=== PATIENT | male | born 1985 | race Caucasian/White ===

== ENCOUNTER 2021-05-09 13:18 | Emergency (ER) | payer OTHER ==
[~2021-05-09] VITALS: Ht 167.6 cm; Wt 70.3 kg
[2021-05-09 13:58] VITALS: BP 133/81
--- NOTE | 2021-05-09 14:00 | NUR ---
SHERIE.HANDED ON URINE CUP.
[2021-05-09] MEDS ORDERED: NACL 0.9% 1,000 ML IV ONE (15:10)
[2021-05-09] MEDS ORDERED: KETOROLAC 30 MG/ML VIAL IM ONE (15:10)
[2021-05-09 15:33] LABS: BASOPHILS % (AUTO) 0.3 % (0.0-2.0); EOSINOPHILS # (AUTO) 0.1 K/uL (0-0.4); EOSINOPHILS % (AUTO) 1.9 % (0.0-4.0); HEMOGLOBIN 16.3 g/dL (12.0-18.0); LYMPHOCYTES # (AUTO) 1.1 K/uL (2.0-11.5); LYMPHOCYTES % (AUTO) 20.2 % (20.5-51.1); MEAN CORPUSCULAR HEMOGLOBIN 31 pg (27-31); MEAN CORPUSCULAR HGB CONC 33 g/dL (33-37); MEAN CORPUSCULAR VOLUME 92.5 fL (80-94); MONOCYTES # (AUTO) 0.5 K/uL (0.8-1.0); MONOCYTES % (AUTO) 9.6 % (1.7-9.3); NEUTROPHILS # (AUTO) 3.7 K/uL (1.8-7.7); PLATELET COUNT (AUTO) 296 K/uL (140-450); RED BLOOD CELL COUNT(AUTO) 5.29 MIL/uL (4.20-6.10); RED CELL DISTRIBUTION WIDTH 13.7 % (11.6-13.7); WHITE BLOOD COUNT (AUTO) 5.4 K/uL (4.8-10.8)
[2021-05-09 15:48] LABS: ANION GAP 11.5 (8-16); CARBON DIOXIDE 30.1 mmol/L (21-32); POTASSIUM 4.6 mmol/L (3.5-5.1)
[2021-05-09] MEDS ORDERED: HYDROcodone/APAP 5/325 MG 1 TAB TAB PO ONE (17:00)
[2021-05-09] MEDS ORDERED: ACET-8386 PO (17:37)
[2021-05-09] MEDS ORDERED: IBUP-1842 PO (17:38)
[2021-05-09] MEDS ORDERED: KETOROLAC 30 MG/ML VIAL ONE (18:01)
--- NOTE | 2021-05-09 18:13 | NUR ---
pt given crutches and insturcted how to use it. pt stated he has used crutches before. pt refused to demonstrate use and agreed he fully understands how to use crutches. ERMD notified.
--- NOTE | 2021-05-09 18:15 | NUR ---
35 Y/O MALE C/O L FLANK PAIN X4 DAYS. PT ALSO C/O PAINFUL URINATION, DENIES HEMATURIA. PT DESCRIBES PAIN "UNCOMFORTABLE". PT DENIES TAKING ANYTHING FOR PAIN. DENIES FEVER/CHILLS. PT STATED HE HASNT EATEN SINCE THIS MORNING, PROVIDED FOOD. PT A/O X4 WITH EVEN AND UNLABORED RESPIRATIONS PMH:DENIES NKDA
[2021-05-10] MEDS ORDERED: TAMSULOSIN 0.4 MG CAP PO SCH (08:30)
== END 2021-05-09 18:28 | disposition home or self-care (01) ==
LOC: MED 13:18 → MERGE 13:18 → MED 18:28
DX: R10.9 Unspecified abdominal pain (principal); R30.0 Dysuria; M54.9 Dorsalgia, unspecified
CPT/HCPCS: 36415; 74176; 80048; 81002; 85025; 96372; 99284; J1885

== ENCOUNTER 2021-08-15 00:05 | Emergency (ER) | payer OTHER ==
[~2021-08-15] VITALS: Ht 167.6 cm; Wt 68.0 kg
[~2021-08-15 00:05] MED LIST: ACET-8386 PO; IBUP-1842 PO
[2021-08-15 00:19] VITALS: BP 126/83
--- NOTE | 2021-08-15 00:26 | NUR ---
PT AMBULATORY TO BED 05 W STEADY GAIT.
--- NOTE | 2021-08-15 00:29 | NUR ---
Dr. Quintanilla examining patient.
--- NOTE | 2021-08-15 00:30 | NUR ---
PT ASSESSMENT COMPLETED BY TORITO. NO NURSING INTERVENTIONS REQUIRED AT THIS TIME.
[2021-08-15] MEDS ORDERED: ACYC400T14 PO (00:32)
--- NOTE | 2021-08-15 00:32 | NUR ---
PT PROVIDED W JUICE AND SANDWHICH.
[2021-08-15 00:36] VITALS: BP 126/83
--- NOTE | 2021-08-15 00:36 | NUR ---
Patient discharged BY TORITO HARP. Rx of ACYCLOVIR given BY TORITO.
== END 2021-08-15 00:36 | disposition home or self-care (01) ==
LOC: MED 00:05
DX: B00.9 Herpesviral infection, unspecified (principal); Z79.899 Other long term (current) drug therapy; Z79.1 Long term (current) use of non-steroidal anti-inflammatories (NSAID); Z79.891 Long term (current) use of opiate analgesic
CPT/HCPCS: 99283

== ENCOUNTER 2021-11-21 18:38 | Emergency (ER) | payer OTHER ==
[~2021-11-21] VITALS: Ht 167.6 cm; Wt 68.0 kg
[~2021-11-21 18:38] MED LIST changes: +ACYC400T14 PO
--- NOTE | 2021-11-21 22:05 | NUR ---
PATIENT LEFT WITHOUT BEING SEEN BY DR. Hernandez. NO FURTHER CARE PROVIDED FOR PATIENT.
== END 2021-11-21 22:05 | disposition left against medical advice (07) ==
LOC: MED 18:38
DX: R21 Rash and other nonspecific skin eruption (principal); Z53.21 Procedure and treatment not carried out due to patient leaving prior to being seen by health care provider

== ENCOUNTER 2021-11-23 09:04 | Emergency (ER) | payer OTHER ==
[~2021-11-23] VITALS: Ht 167.6 cm; Wt 67.1 kg
[2021-11-23 09:29] VITALS: BP 139/94
[2021-11-23] MEDS ORDERED: IBUPROFEN 400 MG TAB PO ONE (10:15)
[2021-11-23] MEDS ORDERED: NAPR-54 PO (10:18)
[2021-11-23] MEDS ORDERED: CEPH-588 PO (10:18)
--- NOTE | 2021-11-23 10:29 | NUR ---
36/M PRESENTS TO ED WITH C/O RIGHT INDEX FINGER PAIN X2 DAYS. STATES HE POKED IT WITH A NEEDLE AND PUS CAME OUT, STATING TODAY FINGER IS SWOLLEN AND PAINFUL.
[2021-11-23 10:36] VITALS: BP 139/94
--- NOTE | 2021-11-23 10:37 | NUR ---
Patient discharged with v/s stable. Written and verbal after care instructions ABOUT PARONYCHIA given and explained. Patient alert, oriented and verbalized understanding of instructions. Ambulatory with steady gait. All questions addressed prior to discharge. ID band removed. Patient advised to follow up with PMD. Rx of KEFLEX AND NAPROSYN given. Patient educated on indication of medication including possible reaction and side effects. Opportunity to ask questions provided and answered.
== END 2021-11-23 10:37 | disposition home or self-care (01) ==
LOC: MED 09:04
DX: L03.011 Cellulitis of right finger (principal); F15.90 Other stimulant use, unspecified, uncomplicated; Z79.899 Other long term (current) drug therapy
CPT/HCPCS: 90471; 90715; 99283

== ENCOUNTER 2021-12-22 01:27 | Emergency (ER) | payer OTHER ==
[~2021-12-22] VITALS: Ht 167.6 cm; Wt 68.0 kg
[~2021-12-22 01:27] MED LIST changes: +CEPH-588 PO; +NAPR-54 PO
[2021-12-22 01:45] VITALS: BP 119/67
--- NOTE | 2021-12-22 02:00 | NUR ---
PATIENT LEFT WITHOUT BEING SEEN BY DR. HAPR. NO FURTHER CARE PROVIDED FOR PATIENT.
== END 2021-12-22 02:00 | disposition left against medical advice (07) ==
LOC: MED 01:27
DX: L02.512 Cutaneous abscess of left hand (principal); L02.511 Cutaneous abscess of right hand; Z53.21 Procedure and treatment not carried out due to patient leaving prior to being seen by health care provider

== ENCOUNTER 2022-08-20 06:18 | Emergency (ER) | payer OTHER ==
[~2022-08-20] VITALS: Ht 167.6 cm; Wt 68.0 kg
[~2022-08-20 06:18] MED LIST changes: -ACET-8386 PO; +ACET-8905 PO
[2022-08-20 06:31] VITALS: BP 130/85
--- NOTE | 2022-08-20 06:39 | NUR ---
to bed 9
[2022-08-20] MEDS ORDERED: GUAI118L81 PO (07:21)
[2022-08-20] MEDS ORDERED: SUD30 PO (07:21)
--- NOTE | 2022-08-20 07:43 | NUR ---
ASSUMED PATIENT CARE, CONCUR WITH PREVIOUS NURSING ASSESSMENTS. PATIENT IS AOX4, WITH STEADY GAIT.
--- NOTE | 2022-08-20 07:44 | NUR ---
Patient discharged with v/s stable. Written and verbal after care instructions given and explained. Patient alert, oriented and verbalized understanding of instructions. Ambulatory with steady gait. All questions addressed prior to discharge. ID band removed. Patient advised to follow up with PMD. Rx of GUAIFENESIN, SUDAFED given. Patient educated on indication of medication including possible reaction and side effects. Opportunity to ask questions provided and answered.
[2022-08-20 07:46] VITALS: BP 130/85
== END 2022-08-20 07:46 | disposition home or self-care (01) ==
LOC: MED 06:18
DX: J06.9 Acute upper respiratory infection, unspecified (principal); Z20.822 Contact with and (suspected) exposure to COVID-19; F15.10 Other stimulant abuse, uncomplicated; Z79.899 Other long term (current) drug therapy
CPT/HCPCS: 71045; 86703; 87426; 87804; 93005; 99285; Q0092

== ENCOUNTER 2022-09-21 05:29 | Emergency (ER) | payer OTHER ==
[~2022-09-21] VITALS: Ht 167.6 cm; Wt 61.2 kg
[~2022-09-21 05:29] MED LIST changes: +GUAI118L81 PO; +SUD30 PO
[2022-09-21 05:43] VITALS: BP 141/83
--- NOTE | 2022-09-21 05:43 | NUR ---
During triage, pt. refused to be seen by MD and walked out of ER. Pt. instructed to come back any time and MD is ready to see him and treat him. Pt. still refused. Pt. put his hoody back on, took his back pack and walked out of ER. Pt. is with no acute distress. Awake and alert. No SOB. Neuro intact A/O x4. Stable on gross observation.
--- NOTE | 2022-09-21 08:03 | NUR ---
PT. NOT FOUND IN LOBBY. CALLED HER NAME OUTSIDE OF ER. CHECKED BATHROOMS. PT. NOT FOUND. PT. LEFT WITHOUT BEING SEEN. NOTIFIED
== END 2022-09-21 08:03 | disposition left against medical advice (07) ==
LOC: MED 05:29
DX: R07.9 Chest pain, unspecified (principal); Z53.21 Procedure and treatment not carried out due to patient leaving prior to being seen by health care provider
CPT/HCPCS: 99281

== ENCOUNTER 2022-10-02 05:30 | Emergency (ER) | payer OTHER ==
[~2022-10-02] VITALS: Ht 167.6 cm; Wt 65.8 kg
[2022-10-02 05:57] VITALS: BP 122/64
--- NOTE | 2022-10-02 06:24 | NUR ---
PATIENT CALLED TO BED SEEN BY TORITO, NO RESPONSE PATIENT LEFT WITHOUT BEING SEEN BY DR. GORDON. NO FURTHER CARE PROVIDED FOR PATIENT.
--- NOTE | 2022-10-02 06:30 | NUR ---
CALLED THE SECOND TIME , NO RESPONSE, CALL OVER TELEPHONE NO RESPONSE
== END 2022-10-02 06:24 | disposition left against medical advice (07) ==
LOC: MED 05:30
DX: M25.512 Pain in left shoulder (principal); Z53.21 Procedure and treatment not carried out due to patient leaving prior to being seen by health care provider
CPT/HCPCS: 99281

== ENCOUNTER 2023-03-07 03:20 | Emergency (ER) | payer OTHER ==
[~2023-03-07] VITALS: Ht 167.6 cm; Wt 65.8 kg
[2023-03-07 03:52] VITALS: BP 112/46; PULSE 97; RESP 16; TEMP 97.3; O2SAT 100
== END 2023-03-07 07:30 | disposition left against medical advice (07) ==
LOC: MED 03:20
DX: M79.642 Pain in left hand (principal); Z53.21 Procedure and treatment not carried out due to patient leaving prior to being seen by health care provider
CPT/HCPCS: 99281

== ENCOUNTER 2023-04-17 11:14 | Emergency (ER) | payer OTHER ==
[~2023-04-17] VITALS: Ht 167.6 cm; Wt 67.3 kg
[2023-04-17 11:30] VITALS: BP 114/55; PULSE 106; RESP 20; TEMP 98.7; O2SAT 97
== END 2023-04-17 13:09 | disposition left against medical advice (07) ==
LOC: MED 11:14
DX: M25.511 Pain in right shoulder (principal); R10.9 Unspecified abdominal pain; Z53.21 Procedure and treatment not carried out due to patient leaving prior to being seen by health care provider
CPT/HCPCS: 99281

== ENCOUNTER 2023-04-25 02:15 | Inpatient (IN) | payer OTHER ==
[~2023-04-25] VITALS: Ht 167.6 cm; Wt 63.5 kg
[2023-04-25 02:22] VITALS: BP 108/58; PULSE 111; RESP 20; TEMP 97.9; O2SAT 95
[2023-04-25 02:44] VITALS: O2SAT 97
[2023-04-25 02:54] LABS: FLU A ANTIGEN negative (NEGATIVE); FLU B ANTIGEN NEGATIVE (NEGATIVE)
[2023-04-25] MEDS: predniSONE 20 MG TAB PO ONE (03:06)
[2023-04-25 03:25] VITALS: PULSE 109; RESP 20; O2SAT 97
[2023-04-25] MEDS: ALBUTEROL 0.083% 2.5 MG/3 ML NEBU INH ONE (03:25)
[2023-04-25 03:38] LABS: BASOPHILS % (AUTO) 0.3 % (0.0-2.0); EOSINOPHILS # (AUTO) 0.2 K/uL (0-0.4); HEMATOCRIT 43.3 % (36-52); LYMPHOCYTES # (AUTO) 1.1 K/uL (2.0-11.5); LYMPHOCYTES % (AUTO) 12.2 % (20.5-51.1); MEAN CORPUSCULAR HEMOGLOBIN 30 pg (27-31); MEAN CORPUSCULAR HGB CONC 32 g/dL (33-37); MEAN CORPUSCULAR VOLUME 92.9 fL (80-94); MONOCYTES # (AUTO) 0.7 K/uL (0.8-1.0); MONOCYTES % (AUTO) 7.6 % (1.7-9.3); NEUTROPHILS # (AUTO) 7.3 K/uL (1.8-7.7); NEUTROPHILS % (AUTO) 77.9 % (42.2-75.2); PLATELET COUNT (AUTO) 242 K/uL (140-450); RED BLOOD CELL COUNT(AUTO) 4.66 MIL/uL (4.20-6.10); RED CELL DISTRIBUTION WIDTH 13.8 % (11.6-13.7); WHITE BLOOD COUNT (AUTO) 9.3 K/uL (4.8-10.8)
[2023-04-25] MEDS ORDERED: PIPERACILLIN/TAZOBACTAM 3.375 GM VIAL IV ONE (03:38)
[2023-04-25] MEDS: NACL 0.9% 1,000 ML IV SCH (03:50)
[2023-04-25] MEDS: PIPERACILLIN/TAZOBACTAM 3.375 GM in DEXTROSE 5% 50 ML IV ONE (03:50)
[2023-04-25 03:52] LABS: ANION GAP 7.7 (8-16); CALCIUM 8.4 mg/dL (8.5-10.1); CARBON DIOXIDE 29.6 mmol/L (21-32); CREATININE 1.1 mg/dL (0.6-1.3); POTASSIUM 4.3 mmol/L (3.5-5.1)
[2023-04-25 03:56] LABS: INR 1.12 (0.8-1.2); PARTIAL THROMBOPLASTIN TIME 25.6 secs (22-35.6); PROTHROMBIN TIME 11.7 secs (10.8-13.4)
[2023-04-25 04:12] LABS: LACTIC ACID 1.9 mmol/L (0.4-2.0)
[2023-04-25] MEDS ORDERED: MAG SULF 2000 MG/WATER PREMIX 50 ML IV PRN (05:15)
[2023-04-25] MEDS ORDERED: ONDANSETRON 4 MG/2 ML VIAL IVP PRN (05:15)
[2023-04-25] MEDS ORDERED: KCL 20 MEQ IN 100 mL PREMIX 200 ML IV PRN (05:15)
[2023-04-25] MEDS ORDERED: ZOLPIDEM 5 MG TAB PO PRN (05:15)
[2023-04-25] MEDS ORDERED: POTASSIUM CHLORIDE 10 MEQ TABER PO PRN (05:15)
[2023-04-25] MEDS ORDERED: LORazepam 1 MG TAB PO PRN (05:15)
[2023-04-25] MEDS ORDERED: HYDROcodone/APAP 5/325 MG 1 TAB TAB PO PRN (05:15)
[2023-04-25] MEDS ORDERED: MAGNESIUM OXIDE 400 MG TAB PO PRN (05:15)
[2023-04-25] MEDS ORDERED: ACETAMINOPHEN 325 MG TAB PO PRN (05:15)
[2023-04-25 05:51] LABS: APPEARANCE,URINE CLEAR (CLEAR); BILIRUBIN,URINE NEGATIVE (NEGATIVE); BLOOD, URINE NEGATIVE (NEGATIVE); COLOR,URINE YELLOW (YELLOW); LEUKOCYTE ESTERASE ,URINE NEGATIVE (NEGATIVE); NITRITE, URINE NEGATIVE (NEGATIVE); PROTEIN,URINE NEGATIVE (NEGATIVE); UGLUCOSE NEGATIVE (NEGATIVE); UROBILINOGEN,URINE 0.2 EU/dL (0.2 - 1)
[2023-04-25] MEDS ORDERED: FUROSEMIDE 20 MG/2 ML VIAL IVP ONE (06:05)
[2023-04-25 06:40] VITALS: BP 119/48; PULSE 109; RESP 20; TEMP 97.9; O2SAT 97
[2023-04-25] MEDS ORDERED: DOCUSATE SODIUM 100 MG GELCAP PO SCH (09:00)
[2023-04-25] MEDS ORDERED: ENOXAPARIN 40 MG/0.4 ML SYR SUBQ SCH (09:00)
[2023-04-25] MEDS ORDERED: PIPERACILLIN/TAZOBACTAM 2.25 GM in DEXTROSE 5% 50 ML IV SCH (13:00)
== END 2023-04-25 06:22 | disposition left against medical advice (07) | DRG 139 ==
LOC: MED 02:15 → MTU 05:22
PROVIDERS: ADMIT Hospitalist; ATTEND Hospitalist
DX: J18.9 Pneumonia, unspecified organism (principal); I11.0 Hypertensive heart disease with heart failure; I50.9 Heart failure, unspecified; F15.10 Other stimulant abuse, uncomplicated; Z20.822 Contact with and (suspected) exposure to COVID-19; Z79.891 Long term (current) use of opiate analgesic; Z79.899 Other long term (current) drug therapy; Z21 Asymptomatic human immunodeficiency virus [HIV] infection status
CPT/HCPCS: 36415; 71045; 80048; 81003; 83605; 83880; 84484; 85025; 85610; 85730; 87040; 87086; 93005; 94640; 96365; 99285; J2543; J7060; J7512; J7613; Q0092

== ENCOUNTER 2023-05-19 06:57 | Emergency (ER) | payer OTHER ==
[~2023-05-19] VITALS: Ht 165.1 cm; Wt 68.7 kg
[2023-05-19 07:44] VITALS: BP 103/61; PULSE 108; RESP 15; TEMP 97.8; O2SAT 99
[2023-05-19] MEDS ORDERED: PRED20TA5 PO (08:08)
[2023-05-19] MEDS ORDERED: ALBU0.0912 IH (08:08)
[2023-05-19] MEDS ORDERED: SPAC1DEV10 MC (08:08)
[2023-05-19] MEDS ORDERED: AMOX500C25 PO (08:30)
[2023-05-19 08:49] VITALS: BP 129/85; PULSE 73; RESP 18; O2SAT 97
[2023-05-19 11:01] LABS: FLU A ANTIGEN negative (NEGATIVE); FLU B ANTIGEN negative (NEGATIVE)
== END 2023-05-19 08:49 | disposition home or self-care (01) ==
LOC: MED 06:57
DX: J18.0 Bronchopneumonia, unspecified organism (principal); Z20.822 Contact with and (suspected) exposure to COVID-19; J98.01 Acute bronchospasm; F15.10 Other stimulant abuse, uncomplicated; Z79.899 Other long term (current) drug therapy
CPT/HCPCS: 71045; 87426; 87804; 99284; Q0092

== ENCOUNTER 2023-05-24 19:49 | Emergency (ER) | payer OTHER ==
[~2023-05-24] VITALS: Ht 167.6 cm; Wt 68.5 kg
[~2023-05-24 19:49] MED LIST changes: +ALBU0.0912 IH; +AMOX500C25 PO; +PRED20TA5 PO; +SPAC1DEV10 MC
[2023-05-24 19:55] VITALS: BP 120/57; PULSE 111; RESP 18; TEMP 98.7; O2SAT 99
[2023-05-24 20:36] LABS: FLU A ANTIGEN negative (NEGATIVE); FLU B ANTIGEN NEGATIVE (NEGATIVE)
[2023-05-24] MEDS ORDERED: NAPR-1704 PO (21:42)
== END 2023-05-24 21:57 | disposition home or self-care (01) ==
LOC: MED 19:49
DX: J18.9 Pneumonia, unspecified organism (principal); Z20.822 Contact with and (suspected) exposure to COVID-19; Z79.899 Other long term (current) drug therapy; Z79.1 Long term (current) use of non-steroidal anti-inflammatories (NSAID); Z79.2 Long term (current) use of antibiotics
CPT/HCPCS: 71045; 99284

== ENCOUNTER 2023-06-13 03:40 | Inpatient (IN) | payer OTHER ==
[~2023-06-13] VITALS: Ht 167.6 cm; Wt 70.8 kg
[~2023-06-13 03:40] MED LIST changes: +NAPR-1704 PO
[2023-06-13 03:43] VITALS: BP 112/85; PULSE 104; RESP 16; TEMP 97; O2SAT 98
[2023-06-13 05:32] LABS: BASOPHILS % (AUTO) 0.6 % (0.0-2.0); EOSINOPHILS # (AUTO) 0.2 K/uL (0-0.4); HEMOGLOBIN 12.5 g/dL (12.0-18.0); LYMPHOCYTES # (AUTO) 1.3 K/uL (2.0-11.5); LYMPHOCYTES % (AUTO) 16.7 % (20.5-51.1); MEAN CORPUSCULAR HEMOGLOBIN 29 pg (27-31); MEAN CORPUSCULAR HGB CONC 33 g/dL (33-37); MEAN CORPUSCULAR VOLUME 89.4 fL (80-94); MONOCYTES # (AUTO) 0.7 K/uL (0.8-1.0); MONOCYTES % (AUTO) 8.5 % (1.7-9.3); NEUTROPHILS # (AUTO) 5.5 K/uL (1.8-7.7); NEUTROPHILS % (AUTO) 71.2 % (42.2-75.2); PLATELET COUNT (AUTO) 169 K/uL (140-450); RED BLOOD CELL COUNT(AUTO) 4.24 MIL/uL (4.20-6.10); RED CELL DISTRIBUTION WIDTH 14.4 % (11.6-13.7); WHITE BLOOD COUNT (AUTO) 7.7 K/uL (4.8-10.8)
[2023-06-13 07:00] LABS: ANION GAP 11.4 (8-16); CALCIUM 8.4 mg/dL (8.5-10.1); CARBON DIOXIDE 22.9 mmol/L (21-32); POTASSIUM 4.3 mmol/L (3.5-5.1)
[2023-06-13] MEDS: FUROSEMIDE 40 MG/4 ML VIAL IVP ONE (07:55)
[2023-06-13] MEDS ORDERED: HYDROcodone/APAP 5/325 MG 1 TAB TAB PO PRN (07:55)
[2023-06-13] MEDS ORDERED: POTASSIUM CHLORIDE 10 MEQ TABER PO PRN (07:55)
[2023-06-13] MEDS ORDERED: KCL 20 MEQ IN 100 mL PREMIX 200 ML IV PRN (07:55)
[2023-06-13] MEDS ORDERED: ONDANSETRON 4 MG/2 ML VIAL IVP PRN (07:55)
[2023-06-13] MEDS ORDERED: ACETAMINOPHEN 325 MG TAB PO PRN (07:55)
[2023-06-13] MEDS ORDERED: MAG SULF 2000 MG/WATER PREMIX 50 ML IV PRN (07:55)
[2023-06-13] MEDS ORDERED: MAGNESIUM OXIDE 400 MG TAB PO PRN (07:55)
[2023-06-13] MEDS: FUROSEMIDE 40 MG/4 ML VIAL IVP SCH (09:00)
[2023-06-13] MEDS: ENOXAPARIN 40 MG/0.4 ML SYR SUBQ SCH (09:51)
[2023-06-13 14:50] VITALS: BP 107/56; PULSE 101; RESP 20; TEMP 97; O2SAT 96
== END 2023-06-13 14:50 | disposition left against medical advice (07) | DRG 194 ==
LOC: MED 03:40 → MTU 07:57
PROVIDERS: ADMIT Hospitalist; ATTEND Hospitalist
DX: I50.41 Acute combined systolic (congestive) and diastolic (congestive) heart failure (principal); R65.11 Systemic inflammatory response syndrome (SIRS) of non-infectious origin with acute organ dysfunction; F15.10 Other stimulant abuse, uncomplicated
CPT/HCPCS: 36415; 71045; 80048; 83880; 84484; 85025; 93005; 96372; 96374; 99285; J1650; J1940; Q0092

== ENCOUNTER 2023-06-17 14:39 | Emergency (ER) | payer OTHER ==
[~2023-06-17] VITALS: Ht 167.6 cm; Wt 78.1 kg
[2023-06-17 14:52] VITALS: BP 121/65; PULSE 109; RESP 20; TEMP 98.4; O2SAT 95
[2023-06-17 16:24] LABS: CALCIUM 8.5 mg/dL (8.5-10.1); CARBON DIOXIDE 28.7 mmol/L (21-32); POTASSIUM 4.7 mmol/L (3.5-5.1)
[2023-06-17 16:28] LABS: BASOPHILS % (AUTO) 0.5 % (0.0-2.0); EOSINOPHILS # (AUTO) 0.2 K/uL (0-0.4); EOSINOPHILS % (AUTO) 2.8 % (0.0-4.0); HEMATOCRIT 39.3 % (36-52); LYMPHOCYTES # (AUTO) 1.1 K/uL (2.0-11.5); LYMPHOCYTES % (AUTO) 17.4 % (20.5-51.1); MEAN CORPUSCULAR HEMOGLOBIN 30 pg (27-31); MEAN CORPUSCULAR HGB CONC 33 g/dL (33-37); MEAN CORPUSCULAR VOLUME 89.9 fL (80-94); MONOCYTES # (AUTO) 0.7 K/uL (0.8-1.0); MONOCYTES % (AUTO) 10.8 % (1.7-9.3); NEUTROPHILS # (AUTO) 4.3 K/uL (1.8-7.7); NEUTROPHILS % (AUTO) 68.5 % (42.2-75.2); PLATELET COUNT (AUTO) 237 K/uL (140-450); RED BLOOD CELL COUNT(AUTO) 4.37 MIL/uL (4.20-6.10); RED CELL DISTRIBUTION WIDTH 14.4 % (11.6-13.7); WHITE BLOOD COUNT (AUTO) 6.2 K/uL (4.8-10.8)
[2023-06-17] MEDS ORDERED: FUROSEMIDE 40 MG TAB PO ONE (17:50)
[2023-06-17 18:32] VITALS: BP 120/70; PULSE 88; RESP 19; TEMP 98; O2SAT 97
== END 2023-06-17 18:32 | disposition home or self-care (01) ==
LOC: MED 14:39
DX: R60.9 Edema, unspecified (principal); R06.02 Shortness of breath; Z79.899 Other long term (current) drug therapy
CPT/HCPCS: 36415; 71045; 80048; 83880; 85025; 99284

== ENCOUNTER 2023-06-30 16:55 | Inpatient (IN) | payer OTHER ==
[~2023-06-30] VITALS: Ht 167.6 cm; Wt 65.8 kg
[2023-06-30 17:01] VITALS: BP 107/54; PULSE 113; RESP 18; TEMP 98.2; O2SAT 92
[2023-06-30 18:10] LABS: AMPHETAMINE, URINE NEGATIVE ng/ml (NEG <=1000); BARBITURATE, URINE NEGATIVE ng/ml (NEG <=200); BENZODIAZEPINE, URINE NEGATIVE ng/mL (NEG <=200); CANNABINOID, URINE NEGATIVE ng/mL (NEG <=50); COCAINE, URINE NEGATIVE ng/mL (NEG <=300); OPIATE, URINE NEGATIVE ng/mL (NEG <=2000); PHENCYCLIDINE SCREEN,URINE NEGATIVE ng/mL (NEG <=25)
[2023-06-30 18:11] VITALS: O2SAT 92
[2023-06-30 18:15] LABS: BASOPHILS % (AUTO) 0.4 % (0.0-2.0); EOSINOPHILS # (AUTO) 0.4 K/uL (0-0.4); EOSINOPHILS % (AUTO) 4.9 % (0.0-4.0); HEMATOCRIT 36.9 % (36-52); LYMPHOCYTES # (AUTO) 1.2 K/uL (2.0-11.5); LYMPHOCYTES % (AUTO) 16.1 % (20.5-51.1); MEAN CORPUSCULAR HEMOGLOBIN 29 pg (27-31); MEAN CORPUSCULAR HGB CONC 33 g/dL (33-37); MEAN CORPUSCULAR VOLUME 87.6 fL (80-94); MONOCYTES # (AUTO) 0.8 K/uL (0.8-1.0); MONOCYTES % (AUTO) 10.3 % (1.7-9.3); NEUTROPHILS # (AUTO) 5.3 K/uL (1.8-7.7); NEUTROPHILS % (AUTO) 68.3 % (42.2-75.2); PLATELET COUNT (AUTO) 217 K/uL (140-450); RED BLOOD CELL COUNT(AUTO) 4.21 MIL/uL (4.20-6.10); RED CELL DISTRIBUTION WIDTH 15.1 % (11.6-13.7); WHITE BLOOD COUNT (AUTO) 7.7 K/uL (4.8-10.8)
[2023-06-30] MEDS: FUROSEMIDE 40 MG/4 ML VIAL IVP ONE (18:15)
[2023-06-30 18:24] LABS: ANION GAP 5.8 (8-16); CALCIUM 8.4 mg/dL (8.5-10.1); CARBON DIOXIDE 36.8 mmol/L (21-32); POTASSIUM 3.6 mmol/L (3.5-5.1)
[2023-06-30 19:57] VITALS: BP 113/47; PULSE 112; RESP 30; O2SAT 92; O2SAT 96
[2023-06-30] MEDS ORDERED: MORPHINE SULFATE 2 MG/ML SYR IVP PRN (21:30)
[2023-06-30] MEDS ORDERED: ONDANSETRON 4 MG/2 ML VIAL IVP PRN (21:30)
[2023-06-30] MEDS ORDERED: ACETAMINOPHEN 325 MG TAB PO PRN (21:30)
[2023-07-01] MEDS ORDERED: FUROSEMIDE 40 MG/4 ML VIAL IVP SCH (09:00)
== END 2023-06-30 21:56 | disposition left against medical advice (07) | DRG 133 ==
LOC: MED 16:55 → MMU 21:31
PROVIDERS: ADMIT Hospitalist; ATTEND Hospitalist
DX: J96.01 Acute respiratory failure with hypoxia (principal); I11.0 Hypertensive heart disease with heart failure; I50.22 Chronic systolic (congestive) heart failure; F15.10 Other stimulant abuse, uncomplicated; Z53.29 Procedure and treatment not carried out because of patient's decision for other reasons
CPT/HCPCS: 36415; 71045; 80048; 80305; 83880; 84484; 85025; 93005; 96374; 99291; J1940

== ENCOUNTER 2023-07-03 16:50 | Inpatient (IN) | payer OTHER ==
[~2023-07-03] VITALS: Ht 167.6 cm; Wt 64.9 kg
[2023-07-03 16:53] VITALS: BP 132/55; PULSE 116; RESP 26; TEMP 98.9; O2SAT 100
[2023-07-03 18:44] LABS: BASOPHILS # (AUTO) 0.1 K/uL (0.00-0.22); BASOPHILS % (AUTO) 1.1 % (0.0-2.0); EOSINOPHILS # (AUTO) 0.2 K/uL (0-0.4); EOSINOPHILS % (AUTO) 1.9 % (0.0-4.0); HEMATOCRIT 37.8 % (36-52); HEMOGLOBIN 12.2 g/dL (12.0-18.0); LYMPHOCYTES # (AUTO) 1.6 K/uL (2.0-11.5); LYMPHOCYTES % (AUTO) 19.7 % (20.5-51.1); MEAN CORPUSCULAR HEMOGLOBIN 29 pg (27-31); MEAN CORPUSCULAR HGB CONC 32 g/dL (33-37); MEAN CORPUSCULAR VOLUME 88.7 fL (80-94); MONOCYTES % (AUTO) 11.9 % (1.7-9.3); NEUTROPHILS # (AUTO) 5.3 K/uL (1.8-7.7); NEUTROPHILS % (AUTO) 65.4 % (42.2-75.2); PLATELET COUNT (AUTO) 229 K/uL (140-450); RED BLOOD CELL COUNT(AUTO) 4.26 MIL/uL (4.20-6.10); WHITE BLOOD COUNT (AUTO) 8.1 K/uL (4.8-10.8)
[2023-07-03 19:38] LABS: POTASSIUM 5.5 mmol/L (3.5-5.1)
[2023-07-03 19:40] LABS: CALCIUM 8.8 mg/dL (8.5-10.1); CARBON DIOXIDE 27.5 mmol/L (21-32)
[2023-07-03] MEDS ORDERED: MAGNESIUM OXIDE 400 MG TAB PO PRN (20:20)
[2023-07-03] MEDS ORDERED: HYDROcodone/APAP 5/325 MG 1 TAB TAB PO PRN (20:20)
[2023-07-03] MEDS ORDERED: POTASSIUM CHLORIDE 10 MEQ TABER PO PRN (20:20)
[2023-07-03] MEDS ORDERED: KCL 20 MEQ IN 100 mL PREMIX 200 ML IV PRN (20:20)
[2023-07-03] MEDS ORDERED: MAG SULF 2000 MG/WATER PREMIX 50 ML IV PRN (20:20)
[2023-07-03] MEDS ORDERED: ACETAMINOPHEN 325 MG TAB PO PRN (20:20)
[2023-07-03] MEDS: FUROSEMIDE 40 MG/4 ML VIAL IVP ONE (20:26)
[2023-07-03] MEDS: FUROSEMIDE 40 MG/4 ML VIAL IVP SCH (21:00)
[2023-07-03 22:10] VITALS: PULSE 113; RESP 20; O2SAT 97
[2023-07-04] VITALS: BP 116/54; PULSE 105; PULSE 107; RESP 19; TEMP 97.9; O2SAT 97
[2023-07-04] MEDS: MORPHINE SULFATE 2 MG/ML SYR IVP PRN (00:21)
[2023-07-04 04:00] VITALS: BP 109/52; PULSE 105; PULSE 97; RESP 19; TEMP 97.5; O2SAT 98
[2023-07-04 05:29] LABS: BASOPHILS % (AUTO) 0.6 % (0.0-2.0); EOSINOPHILS # (AUTO) 0.3 K/uL (0-0.4); HEMATOCRIT 36.6 % (36-52); HEMOGLOBIN 12.1 g/dL (12.0-18.0); LYMPHOCYTES % (AUTO) 23.3 % (20.5-51.1); MEAN CORPUSCULAR HEMOGLOBIN 29 pg (27-31); MEAN CORPUSCULAR HGB CONC 33 g/dL (33-37); MEAN CORPUSCULAR VOLUME 87.2 fL (80-94); MONOCYTES # (AUTO) 1.1 K/uL (0.8-1.0); MONOCYTES % (AUTO) 12.2 % (1.7-9.3); NEUTROPHILS # (AUTO) 5.3 K/uL (1.8-7.7); NEUTROPHILS % (AUTO) 60.9 % (42.2-75.2); PLATELET COUNT (AUTO) 238 K/uL (140-450); RED CELL DISTRIBUTION WIDTH 15.4 % (11.6-13.7); WHITE BLOOD COUNT (AUTO) 8.7 K/uL (4.8-10.8)
[2023-07-04 05:56] LABS: ALBUMIN 2.6 g/dL (3.4-5.0); CALCIUM 8.5 mg/dL (8.5-10.1); CARBON DIOXIDE 30.3 mmol/L (21-32); CREATININE 1.2 mg/dL (0.6-1.3); POTASSIUM 4.3 mmol/L (3.5-5.1); TOTAL BILIRUBIN 1.2 mg/dL (0.0-1.0); TOTAL PROTEIN, SERUM 7.8 g/dL (6.4-8.2)
[2023-07-04 08:00] VITALS: BP 104/53; PULSE 100; PULSE 102; RESP 18; O2SAT 97
[2023-07-04 12:00] VITALS: BP 115/53; PULSE 102; PULSE 114; RESP 18; TEMP 97.2; O2SAT 100
[2023-07-04 16:00] VITALS: BP 122/46; PULSE 105; PULSE 114; RESP 18; TEMP 97.5; O2SAT 98
[2023-07-04 20:00] VITALS: BP 130/74; PULSE 110; RESP 19; TEMP 98.9; O2SAT 97
[2023-07-04] MEDS ORDERED: ONDANSETRON 4 MG/2 ML VIAL IVP PRN (22:45)
[2023-07-05] VITALS: BP 120/56; PULSE 100; PULSE 106; RESP 18; TEMP 98.3; O2SAT 99
[2023-07-05 04:00] VITALS: BP 124/58; PULSE 102; PULSE 91; RESP 18; TEMP 98; O2SAT 97
[2023-07-05 04:02] LABS: AMPHETAMINE, URINE POSITIVE ng/ml (NEG <=1000); BARBITURATE, URINE NEGATIVE ng/ml (NEG <=200); BENZODIAZEPINE, URINE NEGATIVE ng/mL (NEG <=200); CANNABINOID, URINE NEGATIVE ng/mL (NEG <=50); COCAINE, URINE NEGATIVE ng/mL (NEG <=300); OPIATE, URINE POSITIVE ng/mL (NEG <=2000); PHENCYCLIDINE SCREEN,URINE NEGATIVE ng/mL (NEG <=25)
[2023-07-05 06:08] LABS: HIV 1/0/2 ABS, QUAL Non Reactive (Non Reactive)
[2023-07-05 06:25] LABS: BASOPHILS % (AUTO) 0.5 % (0.0-2.0); EOSINOPHILS # (AUTO) 0.2 K/uL (0-0.4); EOSINOPHILS % (AUTO) 1.9 % (0.0-4.0); HEMATOCRIT 37.4 % (36-52); HEMOGLOBIN 12.2 g/dL (12.0-18.0); LYMPHOCYTES # (AUTO) 1.7 K/uL (2.0-11.5); LYMPHOCYTES % (AUTO) 20.9 % (20.5-51.1); MEAN CORPUSCULAR HEMOGLOBIN 29 pg (27-31); MEAN CORPUSCULAR HGB CONC 33 g/dL (33-37); MEAN CORPUSCULAR VOLUME 88.4 fL (80-94); MONOCYTES # (AUTO) 1.2 K/uL (0.8-1.0); MONOCYTES % (AUTO) 14.7 % (1.7-9.3); NEUTROPHILS # (AUTO) 5.1 K/uL (1.8-7.7); PLATELET COUNT (AUTO) 230 K/uL (140-450); RED BLOOD CELL COUNT(AUTO) 4.23 MIL/uL (4.20-6.10); RED CELL DISTRIBUTION WIDTH 15.4 % (11.6-13.7); WHITE BLOOD COUNT (AUTO) 8.2 K/uL (4.8-10.8)
[2023-07-05 07:01] LABS: ALBUMIN 2.7 g/dL (3.4-5.0); ANION GAP 11.6 (8-16); CALCIUM 8.9 mg/dL (8.5-10.1); CARBON DIOXIDE 31.2 mmol/L (21-32); CREATININE 1.1 mg/dL (0.6-1.3); MAGNESIUM 2.1 mg/dL (1.8-2.4); POTASSIUM 4.8 mmol/L (3.5-5.1); TOTAL BILIRUBIN 1.6 mg/dL (0.0-1.0); TOTAL PROTEIN, SERUM 7.8 g/dL (6.4-8.2)
[2023-07-05 08:00] VITALS: BP 126/76; PULSE 100; PULSE 102; PULSE 99; RESP 18; TEMP 98; O2SAT 97; O2SAT 98
[2023-07-05 12:00] VITALS: BP 110/48; PULSE 97; PULSE 99; RESP 18; TEMP 97.5; O2SAT 97
[2023-07-05] MEDS ORDERED: LOSA-269 PO (15:07)
[2023-07-05] MEDS ORDERED: FURO-570 PO (15:07)
[2023-07-05] MEDS ORDERED: SPIR25TA20 PO (15:07)
[2023-07-05] MEDS: LOSARTAN 25 MG TAB PO SCH (15:27)
[2023-07-05 16:00] VITALS: BP 126/78; PULSE 91; PULSE 98; RESP 18; TEMP 97.5; O2SAT 97
[2023-07-05 18:33] VITALS: BP 126/78; PULSE 91; RESP 18; TEMP 97.5
== END 2023-07-05 19:25 | disposition home or self-care (01) | DRG 194 ==
LOC: MED 16:50 → MTU 20:20
PROVIDERS: ADMIT Hospitalist; ATTEND Hospitalist
DX: I50.33 Acute on chronic diastolic (congestive) heart failure (principal); J96.01 Acute respiratory failure with hypoxia; E44.0 Moderate protein-calorie malnutrition; I27.20 Pulmonary hypertension, unspecified; I42.0 Dilated cardiomyopathy; F19.10 Other psychoactive substance abuse, uncomplicated; E87.6 Hypokalemia; Z68.23 Body mass index [BMI] 23.0-23.9, adult; I35.1 Nonrheumatic aortic (valve) insufficiency; F15.10 Other stimulant abuse, uncomplicated
CPT/HCPCS: 36415; 71045; 80048; 80053; 80305; 83735; 83880; 84484; 85025; 86702; 87081; 93005; 96374; 99285; J1644; J1940; J2270

== ENCOUNTER 2023-07-08 03:25 | Emergency (ER) | payer OTHER ==
[~2023-07-08] VITALS: Ht 167.6 cm; Wt 65.8 kg
[~2023-07-08 03:25] MED LIST changes: +FURO-570 PO; +LOSA-269 PO; +SPIR25TA20 PO
[2023-07-08 03:53] VITALS: BP 101/46; PULSE 103; RESP 18; TEMP 96.8; O2SAT 97
[2023-07-08] MEDS: FUROSEMIDE 40 MG TAB PO ONE (06:46)
[2023-07-08 06:51] VITALS: BP 101/46; PULSE 102; O2SAT 96
== END 2023-07-08 06:52 | disposition home or self-care (01) ==
LOC: MED 03:25
DX: T73.0XXA Starvation, initial encounter (principal); G47.00 Insomnia, unspecified; R60.0 Localized edema; I42.0 Dilated cardiomyopathy; I50.9 Heart failure, unspecified; Z79.899 Other long term (current) drug therapy
CPT/HCPCS: 99283

== ENCOUNTER 2023-07-10 14:24 | Emergency (ER) | payer OTHER ==
[~2023-07-10] VITALS: Ht 167.6 cm; Wt 65.8 kg
[~2023-07-10 14:24] MED LIST changes: -ACET-8905 PO; -ACYC400T14 PO; -ALBU0.0912 IH; -AMOX500C25 PO; -CEPH-588 PO; -GUAI118L81 PO; -IBUP-1842 PO; -NAPR-1704 PO; -NAPR-54 PO; -PRED20TA5 PO; -SPAC1DEV10 MC; -SUD30 PO
[2023-07-10 14:44] VITALS: BP 108/52; PULSE 109; RESP 19; TEMP 98; O2SAT 99
[2023-07-10] MEDS: SPIRONOLACTONE 25 MG TAB PO ONE (15:34)
[2023-07-10] MEDS: FUROSEMIDE 40 MG TAB PO ONE (15:35)
[2023-07-10 16:01] VITALS: O2SAT 99
[2023-07-10 17:23] LABS: APPEARANCE,URINE CLEAR (CLEAR); BILIRUBIN,URINE NEGATIVE (NEGATIVE); BLOOD, URINE TRACE-I (NEGATIVE); COLOR,URINE YELLOW (YELLOW); LEUKOCYTE ESTERASE ,URINE NEGATIVE (NEGATIVE); NITRITE, URINE NEGATIVE (NEGATIVE); PROTEIN,URINE TRACE (NEGATIVE); UGLUCOSE NEGATIVE (NEGATIVE)
[2023-07-10 17:26] LABS: BACTERIA,URINE 0-2 /HPF (None Seen); MUCUS,URINE None Seen /LPF (None Seen); RBC,URINE 0-5 /HPF (0-5); SQUAMOUS EPITHELIAL CELL,UR 0-3 (FEW) /LPF (0-3 (FEW)); WBC,URINE 0 /HPF (0-5)
[2023-07-10] MEDS ORDERED: LEVO-481 PO (17:32)
[2023-07-10 17:39] VITALS: BP 108/52; PULSE 109; RESP 19; TEMP 98; O2SAT 99
== END 2023-07-10 17:43 | disposition home or self-care (01) ==
LOC: MED 14:24
DX: N45.1 Epididymitis (principal); N50.89 Other specified disorders of the male genital organs; Z79.899 Other long term (current) drug therapy
CPT/HCPCS: 76870; 81001; 99284; Q0092

== ENCOUNTER 2023-07-16 07:23 | Observation (INO) | payer OTHER ==
[~2023-07-16] VITALS: Ht 167.6 cm; Wt 65.8 kg
[~2023-07-16 07:23] MED LIST changes: +LEVO-481 PO
[2023-07-16 07:34] VITALS: BP 123/62; PULSE 109; RESP 18; TEMP 98.4; O2SAT 98
[2023-07-16] MEDS: FUROSEMIDE 20 MG/2 ML VIAL IVP ONE (08:24)
[2023-07-16] MEDS: ASPIRIN 81 MG TAB.CHEW PO ONE (08:24)
[2023-07-16 08:50] LABS: BASOPHILS # (AUTO) 0.1 K/uL (0.00-0.22); BASOPHILS % (AUTO) 0.8 % (0.0-2.0); EOSINOPHILS # (AUTO) 0.4 K/uL (0-0.4); EOSINOPHILS % (AUTO) 5.1 % (0.0-4.0); HEMATOCRIT 37.1 % (36-52); HEMOGLOBIN 11.9 g/dL (12.0-18.0); LYMPHOCYTES # (AUTO) 1.1 K/uL (2.0-11.5); LYMPHOCYTES % (AUTO) 14.6 % (20.5-51.1); MEAN CORPUSCULAR HEMOGLOBIN 28 pg (27-31); MEAN CORPUSCULAR HGB CONC 32 g/dL (33-37); MEAN CORPUSCULAR VOLUME 88.7 fL (80-94); MONOCYTES # (AUTO) 0.7 K/uL (0.8-1.0); MONOCYTES % (AUTO) 8.7 % (1.7-9.3); NEUTROPHILS # (AUTO) 5.5 K/uL (1.8-7.7); NEUTROPHILS % (AUTO) 70.8 % (42.2-75.2); PLATELET COUNT (AUTO) 250 K/uL (140-450); RED BLOOD CELL COUNT(AUTO) 4.18 MIL/uL (4.20-6.10); RED CELL DISTRIBUTION WIDTH 16.8 % (11.6-13.7); WHITE BLOOD COUNT (AUTO) 7.8 K/uL (4.8-10.8)
[2023-07-16 08:58] LABS: ANION GAP 8.5 (8-16); CALCIUM 8.4 mg/dL (8.5-10.1); CARBON DIOXIDE 28.2 mmol/L (21-32); CREATININE 0.8 mg/dL (0.6-1.3); POTASSIUM 3.7 mmol/L (3.5-5.1)
[2023-07-16 09:07] LABS: ALANINE AMINOTRANSFERASE 47 U/L (12-78); ALBUMIN 2.8 g/dL (3.4-5.0); ALKALINE PHOSPHATASE 120 U/L (50-136); ASPARTATE AMINOTRANSFERASE 62 U/L (15-37); BILIRUBIN,DIRECT 0.3 mg/dL (0.0-0.3); TOTAL BILIRUBIN 0.7 mg/dL (0.0-1.0); TOTAL PROTEIN, SERUM 8.5 g/dL (6.4-8.2)
[2023-07-16 09:38] LABS: FLU A ANTIGEN negative (NEGATIVE); FLU B ANTIGEN negative (NEGATIVE)
[2023-07-16] MEDS ORDERED: KCL 20 MEQ IN 100 mL PREMIX 200 ML IV PRN (11:40)
[2023-07-16] MEDS ORDERED: HYDROcodone/APAP 5/325 MG 1 TAB TAB PO PRN (11:40)
[2023-07-16] MEDS ORDERED: ACETAMINOPHEN 325 MG TAB PO PRN (11:40)
[2023-07-16] MEDS ORDERED: MAG SULF 2000 MG/WATER PREMIX 50 ML IV PRN (11:40)
[2023-07-16] MEDS ORDERED: LORazepam 1 MG TAB PO PRN (11:40)
[2023-07-16] MEDS ORDERED: POTASSIUM CHLORIDE 10 MEQ TABER PO PRN (11:40)
[2023-07-16] MEDS ORDERED: ONDANSETRON 4 MG/2 ML VIAL IVP PRN (11:40)
[2023-07-16] MEDS: diphenhydrAMINE 50 MG/ML VIAL IVP ONE (13:35)
[2023-07-16] MEDS: MORPHINE SULFATE 4 MG/ML SYR IVP PRN (14:10)
[2023-07-16 14:22] VITALS: BP 111/50; PULSE 109; RESP 20; TEMP 97; O2SAT 96
[2023-07-16 14:25] VITALS: PULSE 109; RESP 20; O2SAT 96
[2023-07-16 16:10] VITALS: PULSE 105
[2023-07-16] MEDS ORDERED: DEXTROSE 50% 50 ML SYR IVP PRN (16:20)
[2023-07-16] MEDS ORDERED: INSULIN LISPRO SLIDING SCALE 100 UNITS/ML VIAL SUBQ PRN (16:20)
[2023-07-16 16:33] VITALS: BP 107/50; PULSE 103; RESP 18; TEMP 97.7; O2SAT 96
[2023-07-16] MEDS: FUROSEMIDE 100 MG/10 ML VIAL IVP SCH (16:35)
[2023-07-16] MEDS: BLOOD GLUCOSE MONITORING 1 DEV DEV FS SCH (16:43)
[2023-07-16 20:00] VITALS: BP 113/59; PULSE 104; PULSE 105; PULSE 106; RESP 20; RESP 22; TEMP 97.9; O2SAT 98
[2023-07-16] MEDS: ZOLPIDEM 5 MG TAB PO PRN (20:39)
[2023-07-17] VITALS (9 sets, daily range): BP systolic 107–118; BP diastolic 50–68; PULSE 98–110; RESP 18–22; TEMP 97.6–98; O2SAT 97–100
[2023-07-17 07:44] LABS: BASOPHILS % (AUTO) 0.4 % (0.0-2.0); EOSINOPHILS # (AUTO) 0.4 K/uL (0-0.4); EOSINOPHILS % (AUTO) 6.1 % (0.0-4.0); HEMATOCRIT 35.9 % (36-52); HEMOGLOBIN 11.7 g/dL (12.0-18.0); LYMPHOCYTES # (AUTO) 1.4 K/uL (2.0-11.5); LYMPHOCYTES % (AUTO) 20.4 % (20.5-51.1); MEAN CORPUSCULAR HEMOGLOBIN 29 pg (27-31); MEAN CORPUSCULAR HGB CONC 33 g/dL (33-37); MONOCYTES # (AUTO) 0.6 K/uL (0.8-1.0); MONOCYTES % (AUTO) 8.9 % (1.7-9.3); NEUTROPHILS # (AUTO) 4.3 K/uL (1.8-7.7); NEUTROPHILS % (AUTO) 64.2 % (42.2-75.2); PLATELET COUNT (AUTO) 248 K/uL (140-450); RED BLOOD CELL COUNT(AUTO) 4.08 MIL/uL (4.20-6.10); WHITE BLOOD COUNT (AUTO) 6.7 K/uL (4.8-10.8)
[2023-07-17 08:29] LABS: ANION GAP 12.1 (8-16); CALCIUM 8.7 mg/dL (8.5-10.1); CARBON DIOXIDE 26.5 mmol/L (21-32); POTASSIUM 4.6 mmol/L (3.5-5.1)
[2023-07-17] MEDS: LOSARTAN 25 MG TAB PO SCH (08:51)
[2023-07-17] MEDS: MAGNESIUM OXIDE 400 MG TAB PO SCH (11:42)
[2023-07-17] MEDS ORDERED: MEDS-TO-BEDS MC SCH (21:00)
== END 2023-07-17 16:30 | disposition home or self-care (01) ==
LOC: MED 07:23 → MTU 11:44 → INTOOBSV 11:44 → MTU 12:35
PROVIDERS: ADMIT Internal Medicine; ATTEND Internal Medicine
DX: I11.0 Hypertensive heart disease with heart failure (principal); Z20.822 Contact with and (suspected) exposure to COVID-19; I50.23 Acute on chronic systolic (congestive) heart failure; E11.9 Type 2 diabetes mellitus without complications; F19.10 Other psychoactive substance abuse, uncomplicated; R74.01 Elevation of levels of liver transaminase levels; E46 Unspecified protein-calorie malnutrition; I42.0 Dilated cardiomyopathy; I35.1 Nonrheumatic aortic (valve) insufficiency; D50.0 Iron deficiency anemia secondary to blood loss (chronic); R60.0 Localized edema; Z79.899 Other long term (current) drug therapy; Z68.23 Body mass index [BMI] 23.0-23.9, adult; Z91.119 Patient's noncompliance with dietary regimen due to unspecified reason
CPT/HCPCS: 36415; 71045; 80048; 80076; 82948; 83735; 83880; 84484; 85025; 87081; 87426; 87804; 93005; 96372; 96374; 96375; 96376; 99285; G0378; J1200; J1644; J1815; J1940; J2270

== ENCOUNTER 2023-07-19 05:11 | Emergency (ER) | payer OTHER ==
[~2023-07-19] VITALS: Ht 167.6 cm; Wt 65.8 kg
[~2023-07-19 05:11] MED LIST changes: -LEVO-481 PO; -SPIR25TA20 PO
[2023-07-19 05:15] VITALS: BP 108/58; PULSE 111; RESP 19; TEMP 97.9; O2SAT 97
== END 2023-07-19 07:20 | disposition home or self-care (01) ==
LOC: MED 05:11
DX: R05.9 Cough, unspecified (principal); R06.02 Shortness of breath; M79.89 Other specified soft tissue disorders; I11.0 Hypertensive heart disease with heart failure; E11.9 Type 2 diabetes mellitus without complications; Z79.4 Long term (current) use of insulin; Z79.899 Other long term (current) drug therapy
CPT/HCPCS: 99281

== ENCOUNTER 2023-07-26 15:20 | Inpatient (IN) | payer OTHER ==
[~2023-07-26] VITALS: Ht 167.6 cm; Wt 88.0 kg
[2023-07-26 15:27] VITALS: BP 102/56; PULSE 114; RESP 19; TEMP 98.1; O2SAT 98
[2023-07-26] MEDS ORDERED: FUROSEMIDE 40 MG/4 ML VIAL IVP SCH (15:35)
[2023-07-26] MEDS ORDERED: ONDANSETRON 4 MG/2 ML VIAL IVP PRN (15:55)
[2023-07-26] MEDS ORDERED: INSULIN LISPRO SLIDING SCALE 100 UNITS/ML VIAL SUBQ PRN (15:55)
[2023-07-26 16:17] LABS: BASOPHILS # (AUTO) 0.1 K/uL (0.00-0.22); BASOPHILS % (AUTO) 0.9 % (0.0-2.0); EOSINOPHILS # (AUTO) 0.2 K/uL (0-0.4); EOSINOPHILS % (AUTO) 2.7 % (0.0-4.0); HEMATOCRIT 33.6 % (36-52); HEMOGLOBIN 10.8 g/dL (12.0-18.0); LYMPHOCYTES # (AUTO) 1.3 K/uL (2.0-11.5); LYMPHOCYTES % (AUTO) 21.8 % (20.5-51.1); MEAN CORPUSCULAR HEMOGLOBIN 28 pg (27-31); MEAN CORPUSCULAR HGB CONC 32 g/dL (33-37); MEAN CORPUSCULAR VOLUME 86.9 fL (80-94); MONOCYTES # (AUTO) 0.7 K/uL (0.8-1.0); NEUTROPHILS # (AUTO) 3.8 K/uL (1.8-7.7); NEUTROPHILS % (AUTO) 62.6 % (42.2-75.2); PLATELET COUNT (AUTO) 239 K/uL (140-450); RED BLOOD CELL COUNT(AUTO) 3.86 MIL/uL (4.20-6.10); RED CELL DISTRIBUTION WIDTH 17.1 % (11.6-13.7); WHITE BLOOD COUNT (AUTO) 6.1 K/uL (4.8-10.8)
[2023-07-26] MEDS: FUROSEMIDE 40 MG/4 ML VIAL IVP ONE (16:20)
[2023-07-26 16:30] LABS: ANION GAP 14.6 (8-16); CALCIUM 8.1 mg/dL (8.5-10.1); CARBON DIOXIDE 24.3 mmol/L (21-32); CREATININE 0.9 mg/dL (0.6-1.3); POTASSIUM 3.9 mmol/L (3.5-5.1)
[2023-07-26] MEDS: BLOOD GLUCOSE MONITORING 1 DEV DEV FS SCH (17:08)
[2023-07-26 18:09] VITALS: O2SAT 96
[2023-07-26 20:40] VITALS: BP 114/53; PULSE 103; PULSE 109; RESP 20; TEMP 97.6; O2SAT 96; O2SAT 98
[2023-07-26] MEDS: METOPROLOL 25 MG TAB PO SCH (21:25)
[2023-07-26] MEDS: LORazepam 2 MG/ML VIAL IVP PRN (22:42)
[2023-07-27] VITALS (9 sets, daily range): BP systolic 101–118; BP diastolic 50–62; PULSE 100–118; RESP 18–20; TEMP 97.5–98.5; O2SAT 93–98
[2023-07-27 06:55] LABS: BASOPHILS % (AUTO) 0.6 % (0.0-2.0); EOSINOPHILS # (AUTO) 0.2 K/uL (0-0.4); EOSINOPHILS % (AUTO) 2.8 % (0.0-4.0); HEMATOCRIT 35.5 % (36-52); HEMOGLOBIN 11.6 g/dL (12.0-18.0); LYMPHOCYTES # (AUTO) 1.5 K/uL (2.0-11.5); LYMPHOCYTES % (AUTO) 19.5 % (20.5-51.1); MEAN CORPUSCULAR HEMOGLOBIN 28 pg (27-31); MEAN CORPUSCULAR HGB CONC 33 g/dL (33-37); MEAN CORPUSCULAR VOLUME 86.3 fL (80-94); MONOCYTES # (AUTO) 0.9 K/uL (0.8-1.0); MONOCYTES % (AUTO) 11.6 % (1.7-9.3); NEUTROPHILS % (AUTO) 65.5 % (42.2-75.2); PLATELET COUNT (AUTO) 230 K/uL (140-450); RED BLOOD CELL COUNT(AUTO) 4.11 MIL/uL (4.20-6.10); RED CELL DISTRIBUTION WIDTH 17.1 % (11.6-13.7); WHITE BLOOD COUNT (AUTO) 7.7 K/uL (4.8-10.8)
[2023-07-27 06:56] LABS: ALBUMIN 2.7 g/dL (3.4-5.0); ANION GAP 12.2 (8-16); CALCIUM 8.5 mg/dL (8.5-10.1); MAGNESIUM 1.8 mg/dL (1.8-2.4); POTASSIUM 4.2 mmol/L (3.5-5.1); TOTAL BILIRUBIN 0.9 mg/dL (0.0-1.0)
[2023-07-27] MEDS: FUROSEMIDE 40 MG/4 ML VIAL IVP SCH (08:24)
[2023-07-27] MEDS: ASPIRIN 81 MG TAB.CHEW PO SCH (08:24)
[2023-07-27] MEDS: LOSARTAN 25 MG TAB PO SCH (08:27)
[2023-07-27] MEDS: ENOXAPARIN 40 MG/0.4 ML SYR SUBQ SCH (08:27)
[2023-07-27] MEDS ORDERED: ENOXAPARIN 40 MG/0.4 ML SYR SUBQ SCH (09:00)
[2023-07-27] MEDS ORDERED: ASPIRIN 81 MG TAB.CHEW PO SCH (09:00)
[2023-07-27] MEDS: MEDS-TO-BEDS MC SCH (21:11)
[2023-07-28] VITALS (14 sets, daily range): BP systolic 79–114; BP diastolic 38–62; PULSE 70–118; RESP 18–28; TEMP 96.4–98.2; O2SAT 96–100
[2023-07-28] MEDS: SODIUM BICARBONATE 8.4% 150 MEQ in DEXTROSE 5% 1,000 ML IV SCH
[2023-07-28] MEDS: DEXTROSE 50% 50 ML SYR IVP PRN (12:37)
[2023-07-28] MEDS: MORPHINE SULFATE 4 MG/ML SYR IVP PRN (16:13)
[2023-07-28] MEDS: DEXTROSE 10% 1,000 ML IV SCH (16:54)
[2023-07-28] MEDS: FUROSEMIDE 40 MG/4 ML VIAL IVP SCH (17:19)
[2023-07-28] MEDS ORDERED: NOREPINEPHRINE 4 MG/4 ML VIAL IV ONE (20:17)
[2023-07-28] MEDS: NOREPINEPHRINE 4 MG/4 ML VIAL IV ONE (20:25)
[2023-07-28] MEDS: PROPOFOL 1000 MG/100 ML PREMIX 100 ML IV ONE (20:37)
[2023-07-28] MEDS ORDERED: DEXT 5% / NACL 0.9% 1,000 ML IV SCH (21:30)
[2023-07-28 21:57] LABS: BLOOD GAS PH 6.842 (7.35-7.45)
[2023-07-28 21:58] LABS: BLOOD GAS BASE EXCESS -24.7 mmol/L (-2.0-2.0); BLOOD GAS HCO3 9.2 mmol/L (22-26); BLOOD GAS PCO2 55.1 mmHg (35-45); BLOOD GAS PO2 129.3 mmHg (75-100)
[2023-07-28 21:59] LABS: BLOOD GAS O2 SAT% 95.3 % (92.0-98.5)
[2023-07-28] MEDS: PROPOFOL 1000 MG/100 ML PREMIX 100 ML IV PRN (22:38)
[2023-07-28] MEDS: NOREPINEPHRINE 4 MG in DEXTROSE 5% 250 ML IV PRN (22:43)
[2023-07-28] MEDS: SODIUM BICARBONATE 8.4% PFS 50 MEQ/50 ML SYR IVP SCH (22:45)
[2023-07-28] MEDS: LEVOFLOXACIN 750 MG/D5W PREMIX 150 ML IV ONE (22:46)
[2023-07-29] VITALS (44 sets, daily range): BP systolic 70–161; BP diastolic 21–74; PULSE 78–120; RESP 24–44; TEMP 96.4–99.8; O2SAT 97–100
[2023-07-29 00:40] LABS: BLOOD GAS PCO2 75.9 mmHg (35-45); BLOOD GAS PH 6.949 (7.35-7.45); BLOOD GAS PO2 28.3 mmHg (75-100)
[2023-07-29 00:41] LABS: BLOOD GAS BASE EXCESS -16.7 mmol/L (-2.0-2.0); BLOOD GAS HCO3 16.3 mmol/L (22-26)
[2023-07-29 00:42] LABS: BLOOD GAS O2 SAT% 27.9 % (92.0-98.5)
[2023-07-29] MEDS: NOREPINEPHRINE 4 MG/4 ML VIAL IV ONE ×5 (01:12→07:32)
[2023-07-29 06:01] LABS: BASOPHILS % (AUTO) 0.1 % (0.0-2.0); HEMATOCRIT 41.1 % (36-52); HEMOGLOBIN 12.5 g/dL (12.0-18.0); LYMPHOCYTES # (AUTO) 1.2 K/uL (2.0-11.5); LYMPHOCYTES % (AUTO) 3.8 % (20.5-51.1); MEAN CORPUSCULAR HEMOGLOBIN 28 pg (27-31); MEAN CORPUSCULAR HGB CONC 31 g/dL (33-37); MEAN CORPUSCULAR VOLUME 92.4 fL (80-94); MONOCYTES # (AUTO) 2.3 K/uL (0.8-1.0); MONOCYTES % (AUTO) 7.2 % (1.7-9.3); NEUTROPHILS # (AUTO) 27.8 K/uL (1.8-7.7); NEUTROPHILS % (AUTO) 88.9 % (42.2-75.2); PLATELET COUNT (AUTO) 207 K/uL (140-450); RED BLOOD CELL COUNT(AUTO) 4.44 MIL/uL (4.20-6.10)
[2023-07-29 06:11] LABS: WHITE BLOOD COUNT (AUTO) 31.3 K/uL (4.8-10.8)
[2023-07-29] MEDS ORDERED: NOREPINEPHRINE 16 MG in DEXTROSE 5% 250 ML IV PRN (07:42)
[2023-07-29] MEDS ORDERED: VASOPRESSIN 20 UNITS in NACL 0.9% 250 ML IV PRN (08:59)
[2023-07-29] MEDS: VASOPRESSIN 20 UNITS/ML VIAL ONE (09:05)
[2023-07-29 09:30] LABS: ALBUMIN 2.7 g/dL (3.4-5.0); CALCIUM 8.2 mg/dL (8.5-10.1); CARBON DIOXIDE 20.4 mmol/L (21-32); CREATININE 2.4 mg/dL (0.6-1.3); MAGNESIUM 2.3 mg/dL (1.8-2.4); TOTAL BILIRUBIN 4.2 mg/dL (0.0-1.0); TOTAL PROTEIN, SERUM 8.3 g/dL (6.4-8.2)
[2023-07-29 09:36] LABS: POTASSIUM 6.4 mmol/L (3.5-5.1)
[2023-07-29] MEDS ORDERED: ALBUTEROL SULFATE/IPRATROPIU 3 ML SOL IH PRN (10:25)
[2023-07-29] MEDS: PIPERACILLIN/TAZOBACTAM 2.25 GM in DEXTROSE 5% 50 ML IV SCH (10:45)
[2023-07-29] MEDS ORDERED: SODIUM POLYSTYRENE 15 GM/60 ML UDBTL PO SCH (10:55)
[2023-07-29] MEDS: PANTOPRAZOLE 40 MG INJ VIAL IVP SCH (11:00)
[2023-07-29 11:33] LABS: INR 3.36 (0.8-1.2); PARTIAL THROMBOPLASTIN TIME 46.1 secs (22-35.6); PROTHROMBIN TIME 33.3 secs (10.8-13.4)
[2023-07-29] MEDS: CALCIUM CHLORIDE 10% 100 MG/ML SYR IVP SCH (11:36)
[2023-07-29] MEDS: ALBUMIN HUMAN 25% 100 ML IV SCH (11:37)
[2023-07-29 11:44] LABS: CREATINE KINASE, TOTAL 1544 U/L (39-308)
[2023-07-29] MEDS: HYDROCORTISONE NA SUCC 100 MG/2 ML VIAL IV SCH (11:49)
[2023-07-29] MEDS: DEXTROSE 50% 50 ML SYR IVP SCH (11:49)
[2023-07-29] MEDS: INSULIN REGULAR, HUMAN 100 UNIT/ML VIAL IVP SCH (11:52)
[2023-07-29] MEDS: PHENYLEPHRINE 10 MG in NACL 0.9% 250 ML IV PRN (12:12)
[2023-07-29 13:03] LABS: BLOOD GAS HCO3 15.1 mmol/L (22-26); BLOOD GAS O2 SAT% 99.7 % (92.0-98.5); BLOOD GAS PCO2 34.7 mmHg (35-45); BLOOD GAS PH 7.256 (7.35-7.45); BLOOD GAS PO2 333.4 mmHg (75-100)
[2023-07-29 13:11] LABS: LACTIC ACID 14.6 mmol/L (0.4-2.0)
[2023-07-29] MEDS: VASOPRESSIN 20 UNITS in NACL 0.9% 250 ML IV PRN (13:18)
[2023-07-29] MEDS: ALBUTEROL SULFATE/IPRATROPIU 3 ML SOL IH SCH (13:45)
[2023-07-29 14:13] LABS: ANION GAP 19.4 (8-16); CALCIUM 7.7 mg/dL (8.5-10.1); CARBON DIOXIDE 23.6 mmol/L (21-32); CREATININE 2.9 mg/dL (0.6-1.3)
[2023-07-29] MEDS: PHENYLEPHRINE 40 MG in NACL 0.9% 250 ML IV PRN (15:22)
[2023-07-29] MEDS: NOREPINEPHRINE 16 MG in DEXTROSE 5% 250 ML IV PRN (16:30)
[2023-07-29] MEDS: VASOPRESSIN 40 UNITS in NACL 0.9% 250 ML IV PRN (17:39)
[2023-07-29] MEDS: SODIUM POLYSTYRENE 15 GM/60 ML UDBTL PO PRN (17:40)
[2023-07-29] MEDS ORDERED: COMMUNICATION ORDER MC PRN (19:40)
[2023-07-29] MEDS: LEVOFLOXACIN 750 MG/D5W PREMIX 150 ML IV SCH (21:43)
[2023-07-30] VITALS (38 sets, daily range): BP systolic 95–152; BP diastolic 18–50; PULSE 100–115; RESP 22–38; TEMP 99–99.5; O2SAT 97–100
[2023-07-30] MEDS: NOREPINEPHRINE 4 MG/4 ML VIAL IV ONE (05:15)
[2023-07-30 05:52] LABS: BASOPHILS % (AUTO) 0.1 % (0.0-2.0); HEMATOCRIT 37.6 % (36-52); HEMOGLOBIN 11.9 g/dL (12.0-18.0); LYMPHOCYTES # (AUTO) 1.5 K/uL (2.0-11.5); LYMPHOCYTES % (AUTO) 5.7 % (20.5-51.1); MEAN CORPUSCULAR HEMOGLOBIN 28 pg (27-31); MEAN CORPUSCULAR HGB CONC 32 g/dL (33-37); MONOCYTES # (AUTO) 2.2 K/uL (0.8-1.0); MONOCYTES % (AUTO) 8.7 % (1.7-9.3); NEUTROPHILS # (AUTO) 22.1 K/uL (1.8-7.7); NEUTROPHILS % (AUTO) 85.5 % (42.2-75.2); PLATELET COUNT (AUTO) 148 K/uL (140-450); RED BLOOD CELL COUNT(AUTO) 4.23 MIL/uL (4.20-6.10); RED CELL DISTRIBUTION WIDTH 17.3 % (11.6-13.7)
[2023-07-30 05:54] LABS: WHITE BLOOD COUNT (AUTO) 25.8 K/uL (4.8-10.8)
[2023-07-30 06:17] LABS: INR 3.3 (0.8-1.2); PARTIAL THROMBOPLASTIN TIME 37.4 secs (22-35.6); PROTHROMBIN TIME 32.8 secs (10.8-13.4)
[2023-07-30 08:00] LABS: ANION GAP 28.4 (8-16); CARBON DIOXIDE 16.6 mmol/L (21-32)
[2023-07-30 08:01] LABS: CALCIUM 6.7 mg/dL (8.5-10.1); CREATININE 3.6 mg/dL (0.6-1.3)
[2023-07-30 08:02] LABS: ALBUMIN 2.6 g/dL (3.4-5.0); TOTAL BILIRUBIN 5.2 mg/dL (0.0-1.0); TOTAL PROTEIN, SERUM 6.3 g/dL (6.4-8.2)
[2023-07-30 08:03] LABS: MAGNESIUM 1.8 mg/dL (1.8-2.4)
[2023-07-30 08:04] LABS: PHOSPHORUS 9.4 mg/dL (2.5-4.9)
[2023-07-30] MEDS: LACTULOSE 20 GM/30 ML UDC NG SCH (08:46)
[2023-07-30] MEDS: CALCIUM GLUC 1 GM/50 mL NS BAG 50 ML IV SCH (09:28)
[2023-07-30] MEDS: DEXTROSE 50% 50 ML SYR IVP SCH (09:44)
[2023-07-30] MEDS: INSULIN REGULAR, HUMAN 100 UNIT/ML VIAL IVP SCH (09:45)
[2023-07-30] MEDS: LEVOFLOXACIN 500 MG/D5W PREMIX 100 ML IV SCH (21:53)
[2023-07-30] MEDS ORDERED: DEXTROSE 50% 50 ML SYR IVP SCH (23:30)
[2023-07-30] MEDS ORDERED: INSULIN REGULAR, HUMAN 100 UNIT/ML VIAL SUBQ SCH (23:30)
[2023-07-30] MEDS: VASOPRESSIN 20 UNITS/ML VIAL ONE (23:57)
[2023-07-31] VITALS (34 sets, daily range): BP systolic 98–152; BP diastolic 35–56; PULSE 78–122; RESP 19–49; TEMP 98.9–104.7; O2SAT 98–100
[2023-07-31 05:09] LABS: BASOPHILS % (AUTO) 0.1 % (0.0-2.0); EOSINOPHILS % (AUTO) 0.1 % (0.0-4.0); HEMATOCRIT 35.2 % (36-52); HEMOGLOBIN 11.3 g/dL (12.0-18.0); LYMPHOCYTES # (AUTO) 1.5 K/uL (2.0-11.5); LYMPHOCYTES % (AUTO) 6.4 % (20.5-51.1); MEAN CORPUSCULAR HEMOGLOBIN 28 pg (27-31); MEAN CORPUSCULAR HGB CONC 32 g/dL (33-37); MEAN CORPUSCULAR VOLUME 86.4 fL (80-94); MONOCYTES # (AUTO) 2.5 K/uL (0.8-1.0); MONOCYTES % (AUTO) 10.6 % (1.7-9.3); NEUTROPHILS # (AUTO) 19.3 K/uL (1.8-7.7); NEUTROPHILS % (AUTO) 82.8 % (42.2-75.2); PLATELET COUNT (AUTO) 124 K/uL (140-450); RED BLOOD CELL COUNT(AUTO) 4.08 MIL/uL (4.20-6.10); RED CELL DISTRIBUTION WIDTH 16.7 % (11.6-13.7); WHITE BLOOD COUNT (AUTO) 23.2 K/uL (4.8-10.8)
[2023-07-31 05:35] LABS: ALBUMIN 2.3 g/dL (3.4-5.0); ANION GAP 21.9 (8-16); CARBON DIOXIDE 25.4 mmol/L (21-32); MAGNESIUM 1.8 mg/dL (1.8-2.4); PHOSPHORUS 8.2 mg/dL (2.5-4.9); TOTAL BILIRUBIN 8.8 mg/dL (0.0-1.0); TOTAL PROTEIN, SERUM 6.4 g/dL (6.4-8.2)
[2023-07-31 05:37] LABS: POTASSIUM 6.3 mmol/L (3.5-5.1)
[2023-07-31 05:38] LABS: CALCIUM 5.8 mg/dL (8.5-10.1); CREATININE 5.2 mg/dL (0.6-1.3)
[2023-07-31] MEDS: ACETAMINOPHEN EXTRA STRENGTH 500 MG TAB PO PRN (08:53)
[2023-07-31] MEDS: ALBUMIN HUMAN 25% 100 ML IV SCH (10:17)
[2023-07-31] MEDS: MIDODRINE 5 MG TAB NG SCH (14:32)
[2023-08-01] VITALS (37 sets, daily range): BP systolic 119–152; BP diastolic 24–65; PULSE 109–121; RESP 21–34; TEMP 99–100.3; O2SAT 95–100
[2023-08-01] MEDS: NOREPINEPHRINE 4 MG/4 ML VIAL IV ONE (02:05)
[2023-08-01 06:11] LABS: BASOPHILS % (AUTO) 0.2 % (0.0-2.0); EOSINOPHILS % (AUTO) 0.2 % (0.0-4.0); HEMATOCRIT 33.3 % (36-52); LYMPHOCYTES # (AUTO) 1.4 K/uL (2.0-11.5); LYMPHOCYTES % (AUTO) 7.2 % (20.5-51.1); MEAN CORPUSCULAR HEMOGLOBIN 28 pg (27-31); MEAN CORPUSCULAR HGB CONC 33 g/dL (33-37); MEAN CORPUSCULAR VOLUME 85.2 fL (80-94); MONOCYTES % (AUTO) 10.1 % (1.7-9.3); NEUTROPHILS # (AUTO) 16.4 K/uL (1.8-7.7); NEUTROPHILS % (AUTO) 82.3 % (42.2-75.2); PLATELET COUNT (AUTO) 68 K/uL (140-450); RED BLOOD CELL COUNT(AUTO) 3.91 MIL/uL (4.20-6.10); RED CELL DISTRIBUTION WIDTH 17.1 % (11.6-13.7)
[2023-08-01 07:22] LABS: ALBUMIN 2.4 g/dL (3.4-5.0); ANION GAP 19.4 (8-16); CALCIUM 6.1 mg/dL (8.5-10.1); CARBON DIOXIDE 27.2 mmol/L (21-32); MAGNESIUM 1.8 mg/dL (1.8-2.4); PHOSPHORUS 6.7 mg/dL (2.5-4.9); POTASSIUM 4.6 mmol/L (3.5-5.1); TOTAL BILIRUBIN 11.8 mg/dL (0.0-1.0); TOTAL PROTEIN, SERUM 6.3 g/dL (6.4-8.2)
[2023-08-01 08:01] LABS: CREATININE 4.8 mg/dL (0.6-1.3)
[2023-08-01 15:07] LABS: HEPATITIS A ANTIBODY IGM Negative (Negative); HEPATITIS B CORE AB TOTAL Negative (Negative); HEPATITIS B CORE, IGM Negative (Negative); HEPATITIS B SURFACE ANTIBODY Reactive (.); HEPATITIS B SURFACE ANTIGEN Negative (Negative)
[2023-08-01 15:42] LABS: HEPATITIS A ANTIBODY TOTAL Positive (Negative); HEPATITIS C VIRUS ANTIBODY POSITIVE s/co rat (0.00 - 0.9)
[2023-08-02] VITALS (29 sets, daily range): BP systolic 96–155; BP diastolic 21–71; PULSE 56–112; RESP 20–28; TEMP 98.5–99.8; O2SAT 95–100
[2023-08-02] MEDS: VASOPRESSIN 20 UNITS/ML VIAL ONE (05:54)
[2023-08-02 06:35] LABS: BASOPHILS % (AUTO) 0.2 % (0.0-2.0); EOSINOPHILS % (AUTO) 0.1 % (0.0-4.0); HEMATOCRIT 36.2 % (36-52); HEMOGLOBIN 11.5 g/dL (12.0-18.0); LYMPHOCYTES # (AUTO) 1.4 K/uL (2.0-11.5); LYMPHOCYTES % (AUTO) 6.3 % (20.5-51.1); MEAN CORPUSCULAR HEMOGLOBIN 27 pg (27-31); MEAN CORPUSCULAR HGB CONC 32 g/dL (33-37); MEAN CORPUSCULAR VOLUME 86.1 fL (80-94); MONOCYTES # (AUTO) 2.5 K/uL (0.8-1.0); MONOCYTES % (AUTO) 11.5 % (1.7-9.3); NEUTROPHILS # (AUTO) 17.7 K/uL (1.8-7.7); NEUTROPHILS % (AUTO) 81.9 % (42.2-75.2); PLATELET COUNT (AUTO) 49 K/uL (140-450); RED CELL DISTRIBUTION WIDTH 17.4 % (11.6-13.7); WHITE BLOOD COUNT (AUTO) 21.6 K/uL (4.8-10.8)
[2023-08-02] MEDS: BLOOD GLUCOSE MONITORING 1 DEV DEV FS SCH (06:41)
[2023-08-02 07:12] LABS: ALBUMIN 2.4 g/dL (3.4-5.0); ANION GAP 20.9 (8-16); CARBON DIOXIDE 27.2 mmol/L (21-32); MAGNESIUM 1.9 mg/dL (1.8-2.4); PHOSPHORUS 7.4 mg/dL (2.5-4.9); POTASSIUM 5.1 mmol/L (3.5-5.1); TOTAL BILIRUBIN 13.3 mg/dL (0.0-1.0); TOTAL PROTEIN, SERUM 6.8 g/dL (6.4-8.2)
[2023-08-02 07:29] LABS: CREATININE 4.6 mg/dL (0.6-1.3)
[2023-08-02] MEDS: METOCLOPRAMIDE 10 MG/2 ML INJ VIAL IVP SCH (12:32)
[2023-08-03] VITALS (32 sets, daily range): BP systolic 125–174; BP diastolic 24–51; PULSE 101–112; RESP 18–36; TEMP 99–101.8; O2SAT 91–100
[2023-08-03 06:43] LABS: HEMATOCRIT 35.5 % (36-52); HEMOGLOBIN 11.4 g/dL (12.0-18.0); MEAN CORPUSCULAR HEMOGLOBIN 28 pg (27-31); MEAN CORPUSCULAR HGB CONC 32 g/dL (33-37); MEAN CORPUSCULAR VOLUME 86.3 fL (80-94); PLATELET COUNT (AUTO) 35 K/uL (140-450); RED BLOOD CELL COUNT(AUTO) 4.12 MIL/uL (4.20-6.10); RED CELL DISTRIBUTION WIDTH 17.7 % (11.6-13.7); WHITE BLOOD COUNT (AUTO) 20.9 K/uL (4.8-10.8)
[2023-08-03 07:01] LABS: ALBUMIN 2.3 g/dL (3.4-5.0); ANION GAP 18.1 (8-16); CALCIUM 7.5 mg/dL (8.5-10.1); CARBON DIOXIDE 26.9 mmol/L (21-32); MAGNESIUM 1.9 mg/dL (1.8-2.4); PHOSPHORUS 7.3 mg/dL (2.5-4.9); TOTAL BILIRUBIN 12.8 mg/dL (0.0-1.0); TOTAL PROTEIN, SERUM 6.4 g/dL (6.4-8.2)
[2023-08-03 07:03] LABS: CREATININE 4.4 mg/dL (0.6-1.3)
[2023-08-03 08:12] LABS: LYMPHOCYTES % (MANUAL) 7 % (20-46)
[2023-08-03 08:14] LABS: MONOCYTES % (MANUAL) 12 % (5-12)
== END 2023-08-03 22:34 | DRG 130 ==
LOC: MED 15:20 → MTU 15:54 → INTOOBSV 15:54 → OBSVTOIN 15:54 → MED 15:57 → MMU 18:41 → MTU 07-28 15:24 → MIC 07-28 20:25
PROVIDERS: ADMIT Hospitalist; ATTEND Hospitalist
PROC: 5A1955Z Respiratory Ventilation, Greater than 96 Consecutive Hours (ICD-10-PCS; principal; 2023-07-28)
PROC: 5A12012 Performance of Cardiac Output, Single, Manual (ICD-10-PCS; 2023-07-28)
PROC: 0BH17EZ Insertion of Endotracheal Airway into Trachea, Via Natural or Artificial Opening (ICD-10-PCS; 2023-07-28)
PROC: 02HV33Z Insertion of Infusion Device into Superior Vena Cava, Percutaneous Approach (ICD-10-PCS; 2023-07-30)
PROC: B548ZZA Ultrasonography of Superior Vena Cava, Guidance (ICD-10-PCS; 2023-07-30)
PROC: 5A1D70Z Performance of Urinary Filtration, Intermittent, Less than 6 Hours Per Day (ICD-10-PCS; 2023-07-31)
PROC: 5A1D70Z Performance of Urinary Filtration, Intermittent, Less than 6 Hours Per Day (ICD-10-PCS; 2023-08-01)
PROC: 5A1D70Z Performance of Urinary Filtration, Intermittent, Less than 6 Hours Per Day (ICD-10-PCS; 2023-08-03)
PROC: 5A12012 Performance of Cardiac Output, Single, Manual (ICD-10-PCS; 2023-08-03)
DX: J96.01 Acute respiratory failure with hypoxia (principal); K72.00 Acute and subacute hepatic failure without coma; N17.0 Acute kidney failure with tubular necrosis; R65.21 Severe sepsis with septic shock; J69.0 Pneumonitis due to inhalation of food and vomit; G92.8 Other toxic encephalopathy; I50.33 Acute on chronic diastolic (congestive) heart failure; D68.9 Coagulation defect, unspecified; E87.1 Hypo-osmolality and hyponatremia; E87.20 Acidosis, unspecified; I46.9 Cardiac arrest, cause unspecified; E16.2 Hypoglycemia, unspecified; I42.7 Cardiomyopathy due to drug and external agent; I35.1 Nonrheumatic aortic (valve) insufficiency; I11.0 Hypertensive heart disease with heart failure; E87.5 Hyperkalemia; I27.20 Pulmonary hypertension, unspecified; F15.19 Other stimulant abuse with unspecified stimulant-induced disorder; T43.655A Adverse effect of methamphetamines, initial encounter; Z79.899 Other long term (current) drug therapy; Y92.89 Other specified places as the place of occurrence of the external cause
CPT/HCPCS: 31500; 36415; 36600; 71045; 74018; 76700; 80048; 80053; 82140; 82550; 82553; 82803; 82948; 83036; 83605; 83735; 83880; 84100; 84484; 85025; 85610; 85730; 86704; 86706; 86708; 86709; 86803; 87040; 87070; 87081; 87205; 87340; 89220; 92950; 93005; 94002; 94003; 94640; 94761; 96374; 99285; C9113; J0610; J1644; J1650; J1720; J1815; J1940; J1956; J2060; J2270; J2370; J2543; J2704; J2765; J3490; J7030; J7060; P9046; Q0092